=== PATIENT | female | born 1995 | race Caucasian/White ===

== ENCOUNTER 2016-10-23 23:02 | Emergency (ER) | payer OTHER ==
[~2016-10-23] VITALS: Ht 157.5 cm; Wt 95.0 kg
[~2016-10-23 23:02] MED LIST: ALBU8.5H3 INH; CEPH-443 PO; CYCL-319 PO; FIORICET PO
[2016-10-23 23:10] VITALS: Ht 157.5 cm; Wt 95.0 kg
--- NOTE | 2016-10-23 23:50 | ERD ---
ER Documentation Chief Complaint Date/Time DATE: 10/23/16 TIME: 23:46 Chief Complaint HINDS since 1999, same as chronic frequent headaches HPI 21-year-old female sent here in emergency department for complaints of headache for 5 years, worse in the last 2 days. Patient has history of chronic headaches , never had radiology exam that. Patient denies any head injury. Patient denies any blurry vision, numbness or tingling. Patient had an episode of dizziness. Patient does complain of headache, throbbing pain, 6/10 scale, took amitriptyline with mild relief. She denies any vomiting. Patient denies any changes in vision. ROS All systems reviewed and are negative except as per history of present illness. Medications Home Meds Active Scripts Albuterol Sulfate* (Proair HFA*) 8.5 Gm Hfa.aer.ad, 2 PUFF INH Q4, #1 INHALER Prov:GLORIA DEL CID PA-C 06/29/16 Cyclobenzaprine Hcl* (Cyclobenzaprine Hcl*) 10 Mg Tablet, 10 MG PO BID, #10 TAB Prov:GLORIA DEL CID PA-C 06/29/16 Acetamin/Butalbital/Caffeine* (Fioricet*) [id number] Tab, 1 TAB PO Q6H Y for PAIN, #30 TAB Prov:GLORIA DEL CID PA-C 06/29/16 Cephalexin* (Keflex*) 500 Mg Capsule, 500 MG PO QID for 7 Days, CAP Prov:GLORIA DEL CID PA-C 06/29/16 Allergies Allergies: Coded Allergies: No Known Allergy (Unverified , 05/01/14) PMhx/Soc History of Surgery: No Anesthesia Reaction: No Hx Neurological Disorder: Yes (MIGRAINES, TENSION HINDS) Hx Respiratory Disorders: No Hx Cardiac Disorders: No Hx Psychiatric Problems: No Hx Miscellaneous Medical Probl: Yes (ANEMIA, HIGH CHOLESTEROL) Hx Alcohol Use: No Hx Substance Use: No Hx Tobacco Use: No Smoking Status: Never smoker FmHx Family History: No coronary disease, No diabetes, No other Physical Exam Vitals Vital Signs Date Time Temp Pulse Resp B/P Pulse Ox O2 Delivery O2 Flow Rate FiO2 10/23/16 23:10 99.4 97 20 140/98 100 Physical Exam GENERAL: The patient is well developed and appropriate for usual state of health, in no apparent distress. CHEST: Clear to auscultation bilaterally. There are no rales, wheezes or rhonchi. HEART: Regular rate and rhythm. No murmurs, clicks, rubs or gallops. No S3 or S4. ABDOMEN: Soft, nontender and nondistended. Good bowel sounds. No rebound or guarding. No gross peritonitis. No gross organomegaly or masses. No Villagomez sign or McBurney point tenderness. BACK: No midline or flank tenderness. EXTREMITIES: Equal pulses bilaterally. There is no peripheral clubbing, cyanosis or edema. No focal swelling or erythema. Full range of motion. Grossly neurovascularly intact. NEURO: Alert and oriented. Cranial nerves 2-12 intact. Motor strength in all 4 extremities with 5/5 strength. Sensation grossly intact. Normal speech and gait. Negative Romberg sign. Negative pronator drift. SKIN: There is no apparent rash or petechia. The skin is warm and dry. HEMATOLOGIC AND LYMPHATIC: There is no evidence of excessive bruising or lymphedema. No gross cervical, axillary, or inguinal lymphadenopathy. Results 24 hrs Current Medications Medications (Trade) Dose Ordered Sig/Tawana Route PRN Reason Start Time Stop Time Status Last Admin Dose Admin Acetam/Butalbital/ Caffeine/Codeine (Fioricet/ Codeine) 1 cap ONCE ONCE PO 10/24/16 00:00 10/24/16 00:01 DC 10/24/16 00:20 Patient was given medication for pain here in emergency department, after treatment, patient verbalized feeling much better. Patient's pain is improved. PROCEDURE: CT Brain without contrast CLINICAL INDICATION: headache TECHNIQUE: A CT of the brain was performed on multidetector high-resolution CT scanner utilizing axial sections from the skull base through the vertex without contrast. The scan was reviewed in soft tissue brain and high frequency resolution bone algorithm windows. Images were reviewed on a high- resolution PACS workstation. The exam CTDI = 40.28 mGy and the DLP = 810.25 mGy- cm. One or more of the following dose reduction techniques were used: - Automated exposure control. - Adjustment of the mA and/or kV according to patient size. - Use of iterative reconstruction technique. COMPARISON: None available FINDINGS: The ventricles and sulci are symmetric and normal in size and morphology. There is no evidence of intracranial hemorrhage, mass effect, edema or midline shift. No abnormal intra-axial or extra-axial fluid collections are seen. The density of the brain is normal and the lo/white matter differentiation is well preserved. Brainstem and posterior fossa structures are equally unremarkable. The osseous structures and visualized paranasal sinuses are unremarkable. The surrounding soft tissue scalp and bony calvarium are intact and normal. IMPRESSION: 1. Unremarkable CT brain. RPTAT: HJES .Tato Acevedo MD, MD Date Time Electronically viewed and signed by .Tato Acevedo MD, MD on 10/24/2016 01:07 .S/ CC: CARY GIBBS NP Procedures/MDM Medical Decision Making: Patient symptoms most likely is consistent with migraine headache, possible tension headache. There is low suspicion for neurological emergencies at this time since patients neurologic exam is normal. Patient did not have any altered level consciousness, vomiting, changes in balance or memory did not have any head injury. CT scan of the brain does not show any neurologic emergencies at this time. Patient was given prescription for Fioricet with codeine to help with symptoms, advised to see neurology specialist for further evaluation of symptoms. Patient was advised to return to emergency department for any worsening symptoms Departure Diagnosis: Primary Impression: Headache Headache type: unspecified Headache chronicity pattern: acute headache Intractability: not intractable Qualified Code: R51 - Acute nonintractable headache, unspecified headache type Condition: Stable Patient Instructions: Self-Care for Headaches Additional Instructions: Patient was given prescription for Fioricet with codeine to help with symptoms , advised to see neurology specialist for further evaluation of symptoms. Patient was advised to return to emergency department for any worsening symptoms CARY GIBBS NP Oct 23, 2016 23:49
[2016-10-24] MEDS ORDERED: ACET/BUTAL/CAFF/CODEINE CAP PO ONE
--- NOTE | 2016-10-24 01:08 | RADRPT ---
PROCEDURE: CT Brain without contrast CLINICAL INDICATION: headache TECHNIQUE: A CT of the brain was performed on multidetector high-resolution CT scanner utilizing a xial sections from the skull base through the vertex without contrast. The scan was reviewed in sof t tissue brain and high frequency resolution bone algorithm windows. Images were reviewed on a high -resolution PACS workstation. The exam CTDI = 40.28 mGy and the DLP = 810.25 mGy-cm. One or more of the following dose reduction techniques were used: - Automated exposure control. - Adjustment of the mA and/or kV according to patient size. - Use of iterative reconstruction technique. COMPARISON: None available FINDINGS: The ventricles and sulci are symmetric and normal in size and morphology. There is no evidence of i ntracranial hemorrhage, mass effect, edema or midline shift. No abnormal intra-axial or extra-axial fluid collections are seen. The density of the brain is normal and the lo/white matter different iation is well preserved. Brainstem and posterior fossa structures are equally unremarkable. The o sseous structures and visualized paranasal sinuses are unremarkable. The surrounding soft tissue sc alp and bony calvarium are intact and normal. IMPRESSION: 1. Unremarkable CT brain. RPTAT: HJES .Tato Acevedo MD, MD Date Time Electronically viewed and signed by .Tato Acevedo MD, on 10/24/2016 01:07 .S/
[2016-10-24] MEDS ORDERED: BUTA1CAP39 PO (01:21)
[2016-10-24 01:53] VITALS: BP 131/98; PULSE 81; RESP 18; TEMP 98.3
== END 2016-10-24 01:53 | disposition home or self-care (01) ==
LOC: FTE 23:02
DX: R51 Headache (principal)
CPT/HCPCS: 70450; Z7610

== ENCOUNTER 2016-11-07 18:10 | Emergency (ER) | payer OTHER ==
[~2016-11-07] VITALS: Ht 152.4 cm; Wt 95.5 kg
[~2016-11-07 18:10] MED LIST changes: +BUTA1CAP39 PO
[2016-11-07 18:54] VITALS: Ht 152.4 cm; Wt 95.5 kg
--- NOTE | 2016-11-07 22:55 | ERD ---
ER Documentation Chief Complaint Date/Time DATE: 11/07/16 TIME: 22:51 Chief Complaint vag bleeding x 8 days, denies HPI 21-year-old female complaining of heavy vaginal bleeding 8 days. She is using heavy past, needs to change them every 2 hours. Patient also complaining of pelvic pain and lower back pain, along with dysuria. Patient stated that she has "low blood count", is taking iron pills. She also started OCP 8 days ago at the onset of her current menstrual period. Denies fever or chills. Denies weakness or dizziness. Denies shortness of breath. ROS All systems reviewed and are negative except as per history of present illness. Medications Home Meds Active Scripts Ibuprofen* (Motrin*) 800 Mg Tab, 800 MG PO Q8, #30 TAB Prov:DORI CHAPA SAND WORKER 11/08/16 Nitrofurantoin Monohyd Macrocr* (Macrobid*) 100 Mg Capsr, 100 MG PO BID for 7 Days, CAP Prov:DORI CHAPA SAND WORKER 11/08/16 Xpmevwvcmdlqk-Dtevxfwijm-Urwvjivh-Codeine* (Fioricet w/ Codeine*) [id number] 30MG Capsule, 1 CAP PO Q6H Y for PAIN LEVEL 1-5, #20 CAP Prov:CARY GIBBS NP 10/24/16 Albuterol Sulfate* (Proair HFA*) 8.5 Gm Hfa.aer.ad, 2 PUFF INH Q4, #1 INHALER Prov:GLORIA DEL CID PA-C 06/29/16 Cyclobenzaprine Hcl* (Cyclobenzaprine Hcl*) 10 Mg Tablet, 10 MG PO BID, #10 TAB Prov:GLORIA DEL CID PA-C 06/29/16 Acetamin/Butalbital/Caffeine* (Fioricet*) [id number] Tab, 1 TAB PO Q6H Y for PAIN, #30 TAB Prov:GLORIA DEL CID PA-C 06/29/16 Cephalexin* (Keflex*) 500 Mg Capsule, 500 MG PO QID for 7 Days, CAP Prov:GLORIA DEL CID PA-C 06/29/16 Allergies Allergies: Coded Allergies: No Known Allergy (Unverified , 05/01/14) PMhx/Soc History of Surgery: No Anesthesia Reaction: No Hx Neurological Disorder: Yes (MIGRAINES, TENSION HINDS) Hx Respiratory Disorders: No Hx Cardiac Disorders: No Hx Psychiatric Problems: No Hx Miscellaneous Medical Probl: Yes (ANEMIA, HIGH CHOLESTEROL) Hx Alcohol Use: No Hx Substance Use: No Hx Tobacco Use: No Physical Exam Vitals Vital Signs Date Time Temp Pulse Resp B/P Pulse Ox O2 Delivery O2 Flow Rate FiO2 11/07/16 18:54 98.3 111 20 133/71 100 Physical Exam General impression: Well-developed, well-nourished. Alert, oriented, in no acute distress Head: Normocephalic, atraumatic. Eyes: PERRL, EOM normal. Conjunctiva not injected. Neck: Supple, nontender. No lymphanopathy. No nuchal rigidity. Respiration: Normal respiratory effort. Lungs clear to auscultate bilaterally. No wheezes, rales or rhonchi. Cardiovascular: Regular rate and rhythm. No murmurs or extra heart sounds. Abdomen: Abdomen normal to inspection. Mild suprapubic tenderness. No masses or organomegaly. Bowel sounds normal. Back: Normal to inspection. No midline spine tenderness. No CVA tenderness. Neuro: Mental status normal, speech normal. NON DESTRUCTIVE TESTING SCIENTIST grossly intact. Skin: Normal turgor. No rash or lesions. Psych: Normal mood and affect. Result Diagram: 11/07/160 Results 24 hrs Laboratory Tests Test 11/07/16 23:20 11/07/16 23:25 Basophils # 0.110^3/ul Basophils % 0.4% Blood Morphology Comment Eosinophils # 0.210^3/ul Eosinophils % 1.4% Hematocrit 32.5% Hemoglobin 10.7g/dl Lymphocytes # 4.310^3/ul Lymphocytes % 33.0% Mean Corpuscular Hemoglobin 26.2pg Mean Corpuscular Hemoglobin Concent 32.8g/dl Mean Corpuscular Volume 79.9fl Mean Platelet Volume 8.7fl Monocytes # 0.810^3/ul Monocytes % 6.0% Neutrophils # 7.810^3/ul Neutrophils % 59.2% Nucleated Red Blood Cells # 0.010^3/ul Nucleated Red Blood Cells % 0.0/100WBC Platelet Count 34942^3/UL Red Blood Count 4.0710^6/ul Red Cell Distribution Width 17.4% White Blood Count 13.110^3/ul Bedside Urine Blood 3+ Bedside Urine Glucose (UA) Negative Bedside Urine Ketones (LAB) Negative Bedside Urine Leukocyte Esterase (L Negative Bedside Urine Nitrite (LAB) Positive Bedside Urine Protein (LAB) Negative Bedside Urine pH (LAB) 5.5 Current Medications Medications (Trade) Dose Ordered Sig/Tawana Route PRN Reason Start Time Stop Time Status Last Admin Dose Admin Ibuprofen (Motrin) 800 mg ONCE ONCE PO 11/07/16 23:00 11/07/16 23:01 DC 11/07/16 23:18 Procedures/MDM CBC shows slightly elevated WBC at 13.1 and decreased hemoglobin at 10.7. Patient appeared to have anemia, she is already taking iron supplements. I encouraged patient to continue to take her iron supplements. Pelvic ultrasound shows normal endometrium, no evidence of ovarian torsion. Urine dip showed negative leukocyte, positive nitrite, 3+ blood. It appears the patient has a urinary tract infection as well. Macrobid will be prescribed for the patient. Ibuprofen given to the patient in the ED for pain, patient reports improvement in pain after ibuprofen. Patient appears well, stable for discharge and outpatient management. Medical decision making shared with patient and family. Education provided to patient and family. Patient and family expressed understanding of the plan. Medications on discharge: Macrobid, ibuprofen. Follow-up: Primary care provider in 2-3 days or return to ED if worse. DORI CHAPA NP Nov 07, 2016 22:55
[2016-11-07] MEDS ORDERED: IBUPROFEN 800 MG TAB PO ONE (23:00)
[2016-11-07 23:23] LABS: URINE BLOOD (Dip) POC 3+ (NEGATIVE)
[2016-11-08 00:28] LABS: BASOPHIL # 0.1 10^3/ul (0.0-0.1); BASOPHILS % 0.4 % (0.0-2.0); EOSINOPHILS # 0.2 10^3/ul (0.0-0.5); EOSINOPHILS % 1.4 % (0.0-7.0); HEMATOCRIT 32.5 % (37.0-47.0); HEMOGLOBIN 10.7 g/dl (12.0-16.0); LYMPHOCYTES # 4.3 10^3/ul (0.8-2.9); MEAN CORPUSCULAR HEMOGLOBIN 26.2 pg (29.0-33.0); MEAN CORPUSCULAR HGB CONC 32.8 g/dl (32.0-37.0); MEAN CORPUSCULAR VOLUME 79.9 fl (72.0-104.0); MEAN PLATELET VOLUME 8.7 fl (7.4-10.4); MONOCYTE # 0.8 10^3/ul (0.3-0.9); NEUTROPHIL # 7.8 10^3/ul (1.6-7.5); NEUTROPHILS % 59.2 % (30.0-74.0); PLATELET COUNT 351 10^3/UL (140-440); RED BLOOD COUNT 4.07 10^6/ul (4.20-5.40); RED CELL DISTRIBUTION WIDTH 17.4 % (11.5-14.5); UNCORRECTED WBC 13.1 10^3/ul (4.8-10.8); WHITE BLOOD COUNT 13.1 10^3/ul (4.8-10.8)
--- NOTE | 2016-11-08 00:29 | RADRPT ---
PROCEDURE: Ultrasound of the pelvis. CLINICAL INDICATION: Vaginal bleeding TECHNIQUE: Transabdominal ultrasound of the pelvis was performed to better evaluate the pelvic vis cera. COMPARISON: No pertinent prior examinations were submitted for comparison. FINDINGS: LAST MENSTRUAL PERIOD: Unavailable UTERUS: Size: 10.1 x 4.8 x 5.1 cm. The uterine texture is homogeneous. The endometrium measures 4 mm which i s within normal limits. RIGHT OVARY: Size: 3.9 x 2.4 x 3.8 cm. No ovarian lesion or cyst is identified.Normal Doppler flow is noted to th e right ovary. LEFT OVARY: Size: 3.3 x 2.7 x 3.3 cm. No ovarian lesion or cyst is identified.Normal Doppler flow is noted to th e left ovary. CUL-DE-SAC: There is no abnormal free fluid. IMPRESSION: Normal endometrium. No evidence of ovarian torsion. RPTAT: HIKT .Pedro Carrillo MD, MD Date Time Electronically viewed and signed by .Pedro Carrillo MD, MD on 11/08/2016 00:28 .T/
[2016-11-08 00:30] LABS: CONDITION 1; LH ANALYZER COMMENTS 1
[2016-11-08] MEDS ORDERED: IBUP800T25 PO (01:07)
[2016-11-08] MEDS ORDERED: NITR-58 PO (01:07)
[2016-11-08 01:20] VITALS: BP 123/72; PULSE 97; RESP 16
== END 2016-11-08 01:23 | disposition home or self-care (01) ==
LOC: FTE 18:10
DX: N93.9 Abnormal uterine and vaginal bleeding, unspecified (principal); R10.2 Pelvic and perineal pain
CPT/HCPCS: 36415; 76830; 76856; 81003; 85025; Z7502; Z7610

== ENCOUNTER 2018-01-02 17:46 | Emergency (ER) | END 2018-01-02 23:02 | disposition home or self-care (01) ==

== ENCOUNTER 2018-03-15 12:49 | Outpatient (CLI) | END 2018-03-15 17:00 | disposition home or self-care (01) ==

== ENCOUNTER 2018-04-21 18:53 | Outpatient (CLI) | END 2018-04-21 22:02 | disposition home or self-care (01) ==

== ENCOUNTER 2018-04-23 16:53 | Outpatient (CLI) | END 2018-04-23 18:25 | disposition home or self-care (01) ==

== ENCOUNTER 2018-04-25 12:17 | Outpatient (CLI) | END 2018-04-25 15:45 | disposition home or self-care (01) ==

== ENCOUNTER 2018-04-28 10:51 | Outpatient (CLI) | END 2018-04-28 12:35 | disposition home or self-care (01) ==

== ENCOUNTER 2018-04-29 21:55 | Inpatient (IN) | END 2018-04-30 19:05 | disposition home or self-care (01) | DRG 781 ==

== ENCOUNTER 2018-05-02 10:01 | Outpatient (CLI) | END 2018-05-02 12:30 | disposition home or self-care (01) ==

== ENCOUNTER 2018-05-05 15:20 | Inpatient (IN) | END 2018-05-17 13:35 | disposition home or self-care (01) | DRG 775 ==